=== PATIENT | female | born 1995 | race Caucasian/White ===

== ENCOUNTER 2023-03-21 16:12 | Emergency (ER) | payer SELFPAY ==
[2023-03-21 16:14] VITALS: BP 149/93; PULSE 126; RESP 18; TEMP 37.1; O2SAT 100
[2023-03-21 16:51] LABS: Basophils Absolute Auto 0.1 K/mm3 (0.0-0.1); Basophils Percent Auto 1.1 % (0.2-1.2); Eosinophils Absolute Auto 0.2 K/mm3 (0-0.3); Eosinophils Percent Auto 1.9 % (0-4.4); Hematocrit 41.7 % (37.0-47.0); Hemoglobin 13.3 g/dL (12.0-15.0); Immature Granulocyte Absolute 0.06 K/mm3 (0.00-0.031); Immature Granulocyte Percent A 0.5 % (0-0.5); Lymphocytes Percent Auto 22.5 % (18.3-44.2); Mean Corpuscular HGB Conc 31.9 g/dl (32-36); Mean Corpuscular Hemoglobin 25.9 pg (26-34); Mean Corpuscular Volume 81.1 fl (80-100); Mean Platelet Volume 9.3 fl (7.4-10.4); Monocytes Absolute Auto 0.7 K/mm3 (0.1-0.6); Monocytes Percent Auto 6.1 % (2.6-8.5); Neutrophils Absolute Auto 7.6 K/mm3 (1.3-6.7); Neutrophils Percent Auto 67.9 % (45.5-73.1); Platelet Count Result 515 k/mm3 (150-375); Red Blood Count 5.14 M/mm3 (4.2-5.4); Red Cell Distribution Width 14.4 % (11.5-14.5); White Blood Count 11.1 K/mm3 (4.5-10.0)
[2023-03-21 16:52] VITALS: BP 128/73; PULSE 76; RESP 17; O2SAT 97
[2023-03-21 16:52] LABS: Appearance Urine Clear (Clear); Bilirubin Urine Negative (Negative); Blood Urine 1+ (Negative); Color Urine Yellow (Yellow); Glucose Urine UA Negative (Negative); Ketones Urine 1+ mg/dL (Negative); Leukocyte Esterase Ur Negative LEU/UL (Negative); Nitrate Urine Negative (Negative); Protein Urine Negative (Negative); Urobilinogen Urine 0.2 mg/dL (<2.0)
[2023-03-21 17:00] LABS: Alanine Aminotransferase 22 U/L (6-35); Albumin Level 4.8 g/dL (3.5-5.1); Alkaline Phosphatase 112 U/L (38-126); Anion Gap 12 mmol/L (8-16); Aspartate Amino Transferase 26 U/L (14-36); Bilirubin,Total 0.8 mg/dL (0.2-1.3); Blood Urea Nitrogen 8 mg/dL (7-17); Calcium 9.9 mg/dL (8.4-10.2); Carbon Dioxide 24 mmol/L (22-30); Chloride 101 mmol/L (98-107); Estimated CRCL calculation 103 ml/min; Estimated Glomerular Filt Rate > 60; Glucose 131 mg/dL (65-110); Lipase 57 U/L (23-300); Potassium 3.3 mmol/L (3.4-5.0); Sodium 137 mmol/L (137-145)
[2023-03-21 17:02] LABS: Bacteria Urine None Seen /hpf; Need Manual Microscopic Reviewed; Non Pathogenic Casts 0-2; RBC Urine 0-2 /hpf (0-2); Squamous Epithelial Cell Urine Occasional /hpf (Few); WBC Urine 0-5 /hpf
[2023-03-21 17:03] LABS: Add Urine Microscopic? YES
--- NOTE | 2023-03-21 17:18 | ED.NAVMDI ---
HPI - Nausea/Vomiting/Diarrhea General Chief complaint: Nausea/Vomiting/Diarrhea Stated complaint: Nausea/Vomiting Time Seen by Provider: 03/21/23 16:29 History of Present Illness HPI Narrative: Patient is a 27-year-old female presenting with nausea and vomiting. Patient states over the last 10 days or so she has had persistent nausea and recurrent vomiting. States that the vomiting seems worse in the morning in the evenings but she does remain nauseated throughout the day. States that she is keeping some things down but not very much. She was seen in urgent care couple days ago and had a negative urine test. She was started on Zofran which she states has not really been helping. She denies any abdominal pain, flank pain, dysuria, hematuria, diarrhea, constipation, vaginal discharge. LMP was 2 weeks ago. Patient states that she does smoke cannabis on a daily basis. No fevers or chills, chest pain, shortness of breath, cough Related Data Allergies Allergy/AdvReac Type Severity Reaction Status Date / Time No Known Allergies Allergy Verified 03/21/23 17:32 Review of Systems Review of Systems: All systems reviewed & are unremarkable except as noted in HPI and below Exam Narrative: GENERAL: Well-appearing, no acute distress, pleasant and cooperative HEAD: Normocephalic, atraumatic. EYES: PERRLA and EOMI. ENT: Mucous membranes moist. NECK: Supple. CHEST: Clear to auscultation. No respiratory distress. HEART: Regular rate and rhythm ABDOMEN: Soft, nontender, nondistended EXTREMITIES: Normal range of motion. No edema. SKIN: Warm, dry, no rash. NEURO: No focal deficits. Alert and oriented x3. PSYCH: Normal mood and affect. Course Vital Signs Vital signs: Vital Signs Temperature 98.8 F 03/21/23 16:14 Pulse Rate 126 H 03/21/23 16:14 Respiratory Rate 18 03/21/23 16:14 Blood Pressure 149/93 H 03/21/23 16:14 Pulse Oximetry 100 03/21/23 16:14 Oxygen Delivery Room Air 03/21/23 16:14 Temperature 98.8 F 03/21/23 16:14 Pulse Rate 66 03/21/23 21:59 Respiratory Rate 17 03/21/23 21:59 Blood Pressure 127/66 03/21/23 21:59 Pulse Oximetry 99 03/21/23 21:59 Oxygen Delivery Room Air 03/21/23 16:14 MDM - Nausea/Vomiting/Diarrhea MDM Narrative Medical decision making narrative: Patient is a 27-year-old female presenting with nausea and vomiting. Vital stable. Exam remarkable for the above. Abdomen is soft and benign. No tenderness. Blood work with mild leukocytosis and hypokalemia. Remainder of blood work is unremarkable. UA is contaminated but not indicative of infection. Patient does report daily use of cannabis. She was given a dose of IM Haldol, fluids, Benadryl. States that she felt slightly improved though she still feels nauseated. She is tolerating p.o. intake right now. Discussed appropriate supportive care and advised PCP and GI follow-up. Appropriate return precautions given. Patient voiced understanding and is agreeable with plan. Discharged in stable condition. Differential Diagnosis Differential diagnosis: Likely food poisoning, gastroenteritis, dehydration and other (Cannabinoid hyperemesis, gastritis, nausea and vomiting, dehydration, UTI) Medical Records Attestation: I reviewed the patient's medical records. Lab Data Attestation: I reviewed the patient's lab results. 03/21/23 16:43 03/21/23 16:43 Labs: Lab Results 03/21/23 Range/Units 16:43 WBC 11.1 H (4.5-10.0) K/mm3 RBC 5.14 (4.2-5.4) M/mm3 Hgb 13.3 (12.0-15.0) g/dL Hct 41.7 (37.0-47.0) % MCV 81.1 (80-100) fl MCH 25.9 L (26-34) pg MCHC 31.9 L (32-36) g/dl RDW 14.4 (11.5-14.5) % Plt Count 515 H (150-375) k/mm3 MPV 9.3 (7.4-10.4) fl Immature Gran % (Auto) 0.5 (0-0.5) % Neut % (Auto) 67.9 (45.5-73.1) % Lymph % (Auto) 22.5 (18.3-44.2) % [place] % (Auto) 6.1 (2.6-8.5) % Eos % (Auto) 1.9 (0-4.4) % Baso % (Auto) 1.1 (0
[2023-03-21] MEDS: SODIUM CHLORIDE 0.9% IV 1,000 ML 999 ML IV CONT (17:32)
[2023-03-21] MEDS: diphenhydrAMINE HCl INJ 50 MG/ML VIAL 25 MG IV PUSH (17:36)
[2023-03-21] MEDS: HALOPERIDOL LACTATE 5 MG/ML VIAL IM (17:36)
[2023-03-21] MEDS: FAMOTIDINE 20 MG/2 ML VIAL IV PUSH (17:36)
[2023-03-21 18:46] VITALS: BP 110/57; PULSE 75; RESP 18; O2SAT 98
[2023-03-21 21:59] VITALS: BP 127/66; PULSE 66; RESP 17; O2SAT 99
== END 2023-03-21 22:01 | disposition home or self-care (01) ==
PROVIDERS: Emergency Provider Emergency Medicine
DX: R11.2 Nausea with vomiting, unspecified (principal)
CPT/HCPCS: 36415; 80053; 81001; 81025; 83690; 85025; 96361; 96372; 96374; 96375; 99284; J1200; J1630; J7030